=== PATIENT | female | born 1965 | race Caucasian/White ===

== ENCOUNTER 2016-08-29 07:35 | Day surgery (SDC) | payer OTHER ==
[~2016-08-29 07:35] MED LIST: Buffered Lidocaine 1% SYR 3ML* 3 ML/SYR SYRINGE INTRADERM ONE; Dexamethasone TAB* 4 MG PO ONE; Famotidine IV* 10 MG/ML 2 ML (20 mg) IV ONE; Morphine INJ* 2 MG/ML 1 ML SYRINGE IV PRN; PROCHLORPERAZINE INJ 5 MG/ML 2 ML VIAL IV PRN; Scopolamine 1.5 mg* PATCH TRANSDERM ONE; fentaNYL* 50 MCG/ML 2 ML VIAL (100 MCG VIAL) IV PRN; oxyCODONE/Acetamin 5/325 MG* TAB PO PRN
[2016-08-29] MEDS ORDERED: Scopolamine 1.5 mg* PATCH ONE (07:49)
[2016-08-29] MEDS ORDERED: Dexamethasone TAB* 4 MG ONE (07:49)
[2016-08-29] MEDS ORDERED: Famotidine IV* 10 MG/ML 2 ML (20 mg) ONE (07:49)
[2016-08-29] MEDS ORDERED: fentaNYL* 50 MCG/ML 2 ML VIAL (100 MCG VIAL) ONE ×3 (08:22→11:19)
[2016-08-29] MEDS ORDERED: Atracurium* 10 MG/ML 10 ML VIAL ONE (08:22)
[2016-08-29] MEDS ORDERED: Midazolam* 1 MG/ML 5 ML VIAL (5 MG) ONE (08:22)
[2016-08-29] MEDS ORDERED: KETAMINE HCL* 50 MG/ML 10 ML VIAL ONE (08:22)
[2016-08-29] MEDS ORDERED: Bupivacaine 0.25% SDV* 30 ML ONE (08:50)
[2016-08-29] MEDS ORDERED: Albuterol 2.5 MG/3 ML NEB.SOL* (0.083%) ONE (09:32)
[2016-08-29] MEDS ORDERED: Glycopyrrolate IV* 0.2 MG/ML 1 ML VIAL ONE (09:43)
[2016-08-29] MEDS ORDERED: Propofol* 10 MG/ML 20 ML BTL IV PUSH ONE (09:43)
[2016-08-29] MEDS ORDERED: Lidocaine 2% PF * 5 ML VIAL ONE ×2 (09:43→10:34)
[2016-08-29] MEDS ORDERED: Neostigmine Methylsulfate* 2 MG/2 ML SYRINGE ONE (09:43)
[2016-08-29] MEDS ORDERED: Ondansetron INJ* 2 MG/ML VIAL ONE (09:43)
[2016-08-29] MEDS ORDERED: Dexamethasone IV* 4 MG/ML 1 ML (4 MG) ONE (09:43)
[2016-08-29] MEDS ORDERED: Phenylephrine IV* 40 MCG/ML 10 ML SYRINGE ONE (09:44)
[2016-08-29] MEDS ORDERED: Ketorolac INJ* 30 MG/ML 1 ML VIAL ONE (10:29)
[2016-08-29 11:47] VITALS: BP 167/95
[2016-09-01] MEDS ORDERED: Scopolomine PATCH Remove* 1 NOTE MISC PATCH OFF ONE (06:00)
--- NOTE | 2016-09-06 04:55 | OP ---
OPERATIVE REPORT: DATE OF OPERATION: 08/29/16 - [facility] DATE OF : 69 SURGEON: Renita Vora MD DISTRICT AGENT: Dr. Ceballos. ANESTHESIOLOGIST: Dr. Jordan. ANESTHESIA: General endotracheal. PRE-OP DIAGNOSES: Persistent right lower quadrant pain and right ovarian cyst. POST-OP DIAGNOSES: Persistent right lower quadrant pain and right dilated fallopian tube. OPERATIVE PROCEDURE: Laparoscopic right salpingectomy and lysis of adhesions. INDICATIONS: This patient is a 51-year-old woman who presented to the office 2 to 3 months ago as followup from the emergency department. She was having at that time intermittent fairly severe right lower quadrant pains and an approximately 5 cm ovarian cyst had been noted on initial evaluation. Considering the cyst was not very large and the patient reported that her pain was only a couple of times a week, we elected to observe it for couple of months. However, after just 3 to 4 weeks of persisting weekly calls for additional pain medication, we decided to repeat the ultrasound earlier and reassess the situation. What appeared to be an ovarian cyst was essentially unchanged approximately 5 cm in size with a somewhat solid component in the center. CA-125 was performed and returned normal. The patient was having daily pain and requiring daily hydrocodone use. So considering this, we decided to proceed to laparoscopic evaluation and likely right ovarian cystectomy. ESTIMATED BLOOD LOSS: Less than 20 cc. IV FLUIDS: 1200 cc lactated Ringer's. MATERIALS TO LAB: Right fallopian tube. FINDINGS: Uterus with what appeared to be a moderate-sized posterior fibroid as well as a significantly dilated right fallopian tube. This segment of the tube was adhesed to the bladder and the pelvic sidewall and there appeared to be a moderate amount of inflammation throughout the pelvis. The left fallopian tube and ovary were normal, but there were also additional adhesions in that area. The right ovary appeared completely normal. COMPLICATIONS: None. DESCRIPTION OF PROCEDURE: The risks, benefits, and alternatives were described to the patient and informed consent was obtained. The patient was taken to the operating room with IV running where general anesthesia was induced and found to be adequate. The patient was prepped and draped in the normal sterile fashion in the [facility] A Nicholson catheter was placed. A time- out was performed. A bivalved speculum was placed in the vagina and a Hulka tenaculum was placed through the cervix for uterine manipulation. The speculum was then removed and the patient placed in the low lithotomy position. Attention was then turned to the abdomen. 0.25% Marcaine was injected into the umbilicus and about 3 cm below it in the subcutaneous space. Approximately 3 cm incision was then made with a scalpel in a vertical fashion. The subcutaneous tissues were dissected bluntly. The fascia was able to be grasped near the umbilicus and elevated. A transverse fascial incision was then made using the scalpel and then scissors. The edges of the fascial incision were grasped with Godwin clamps. The peritoneal cavity was then entered bluntly. A GelPOINT mini was then prepared. The anterior ring was then placed and the outer ring was tightened down against the skin. The GelPOINT cover was then placed with three [address]. The abdomen was then insufflated with carbon dioxide gas to a maximum pressure of 15 mmHg. The patient was then placed in a Trendelenburg position. A camera was placed into the peritoneal cavity and a grasper was used to sweep the bowel out of the pelvis. There was then very good visualization of the pelvis. The right fallopian tube was noted to be markedly dilated and adhesed to the pelvic sidewall and anteriorly to the bladder. Using a grasper and a [place], the adhesions were successfully taken down while leaving the fallopian tube intact. A LigaSure was then used to coagulate and transect the fallopian tube proximally. The mesosalpinx was then also dissected down using the LigaSure. The dilated tube was then placed in the anterior cul-de-sac. On careful inspection, both ovaries appeared normal and the left fallopian tube also appeared normal. There was minimal bleeding present at that time. The pelvis was irrigated with saline and this was suctioned. A 5 mm Endo Catch bag was then placed through one of the ports and the grasper was used to open the bag. The fallopian tube which had been amputated was placed into the Endo Catch bag and this was then removed through the umbilical incision site. This was only able to be removed after removal of the GelPOINT and Hemant retractor. The Hemant and GelPOINT were replaced and on careful inspection, the pelvis was hemostatic. The gas was then allowed to escape again. The GelPOINT and Hemant were removed. The fascial incision was re- approximated using 0 Polysorb in a running fashion. The skin was then closed with Monocryl in a subcuticular stitch and this was overlaid with DermaFlex skin adhesive. The Hulka tenaculum was then also removed from the uterus. The patient was returned to the supine position and allowed to awaken. The patient tolerated the procedure well. Sponge, lap, and needle counts were correct x2. [id number]/[facility] #: [id number] MTDD
== END 2016-08-29 12:10 | disposition home or self-care (01) ==
LOC: OR 07:35
PROVIDERS: ATTEND Obstetrics & Gynecology
DX: N83.8 Other noninflammatory disorders of ovary, fallopian tube and broad ligament (principal); F17.210 Nicotine dependence, cigarettes, uncomplicated
CPT/HCPCS: 88305; A9270-GY; J1100; J1885; J2250; J2405; J2704; J3010